=== PATIENT | female | born 1980 | race Caucasian/White ===

== ENCOUNTER → 2024-03-02 18:57 | Outpatient (REF) | payer BC, SELFPAY | LOC: MRI 3T 18:57 | PROVIDERS: ATTENDING PHYSICIAN Surgery; FAMILY PHYSICIAN Family Medicine | DX: Z91.89 Other specified personal risk factors, not elsewhere classified (principal); R92.2 Inconclusive mammogram | CPT/HCPCS: 77049; A9585 ==

== ENCOUNTER → 2024-05-18 12:44 | Outpatient (REF) | payer BC, SELFPAY | LOC: RAD 12:44 | PROVIDERS: ATTENDING PHYSICIAN Internal Medicine Endocrinology, Diabetes & Metabolism; FAMILY PHYSICIAN Family Medicine | DX: E04.1 Nontoxic single thyroid nodule (principal) | CPT/HCPCS: 76536 ==

== ENCOUNTER → 2024-05-24 07:39 | Outpatient (REF) | payer BC, SELFPAY | LOC: WDC 07:39 | PROVIDERS: ATTENDING PHYSICIAN Surgery; FAMILY PHYSICIAN Family Medicine | DX: R92.8 Other abnormal and inconclusive findings on diagnostic imaging of breast (principal) | CPT/HCPCS: 76642 ==

== ENCOUNTER → 2024-09-03 16:52 | Outpatient (REF) | payer BC, SELFPAY | LOC: WDC 16:52 | PROVIDERS: ATTENDING PHYSICIAN Surgery; FAMILY PHYSICIAN Family Medicine | DX: Z12.31 Encounter for screening mammogram for malignant neoplasm of breast (principal) | CPT/HCPCS: 77063; 77067 ==

== ENCOUNTER → 2024-09-28 12:39 | Outpatient (REF) | payer BC, SELFPAY | LOC: WDC 12:39 | PROVIDERS: ATTENDING PHYSICIAN Surgery; FAMILY PHYSICIAN Family Medicine | DX: R92.2 Inconclusive mammogram (principal) | CPT/HCPCS: 76641 ==

== ENCOUNTER → 2025-03-08 18:23 | Outpatient (REF) | payer BC, SELFPAY | LOC: MRI 3T 18:23 | PROVIDERS: ATTENDING PHYSICIAN Surgery; FAMILY PHYSICIAN Family Medicine | DX: R92.2 Inconclusive mammogram (principal); Z91.89 Other specified personal risk factors, not elsewhere classified | CPT/HCPCS: 77049; A9585 ==

== ENCOUNTER → 2025-05-28 17:10 | Outpatient (REF) | payer BC, SELFPAY | LOC: RAD 17:10 | PROVIDERS: ATTENDING PHYSICIAN Internal Medicine Endocrinology, Diabetes & Metabolism; FAMILY PHYSICIAN Family Medicine | DX: E04.1 Nontoxic single thyroid nodule (principal) | CPT/HCPCS: 76536 ==

== ENCOUNTER → 2025-09-05 07:06 | Outpatient (REF) | payer BC, SELFPAY | LOC: WDC 07:06 | PROVIDERS: ATTENDING PHYSICIAN Surgery; FAMILY PHYSICIAN Family Medicine | DX: Z12.31 Encounter for screening mammogram for malignant neoplasm of breast (principal); Z91.89 Other specified personal risk factors, not elsewhere classified; R92.2 Inconclusive mammogram | CPT/HCPCS: 77063; 77067 ==